=== PATIENT | female | born 1960 | race Two or more races ===

== ENCOUNTER 2020-06-06 10:23 | Outpatient (CLI) | payer OTHER ==
[~2020-06-06 10:23] MED LIST: MICARDIS80 MG PO
== END 2020-06-06 11:00 | disposition home or self-care (01) ==
LOC: NUCLEAR 10:23
PROVIDERS: ATTEND Internal Medicine Cardiovascular Disease
DX: I10 Essential (primary) hypertension (principal); I87.2 Venous insufficiency (chronic) (peripheral)

== ENCOUNTER 2020-06-11 08:58 | Outpatient (CLI) | payer OTHER | END 2020-06-11 09:13 | disposition home or self-care (01) | LOC: NUCLEAR 08:58 | PROVIDERS: ATTEND Internal Medicine Cardiovascular Disease | DX: I73.9 Peripheral vascular disease, unspecified (principal) ==